=== PATIENT | male | born 1985 | race Caucasian/White ===

== ENCOUNTER 2017-06-23 08:56 | Emergency (ER) | payer OTHER, SELFPAY ==
[~2017-06-23] VITALS: Ht 177.8 cm; Wt 95.9 kg
[2017-06-23] MEDS ORDERED: LIDOCAINE 1%, 20ML ONE (11:57)
[2017-06-23] MEDS ORDERED: LIDOCAINE 1%, 20ML SQ ONE (12:00)
[2017-06-23 12:29] VITALS: BP 121/71
== END 2017-06-23 12:50 | disposition home or self-care (01) ==
LOC: ED 11:03
DX: K61.1 Rectal abscess (principal)
CPT/HCPCS: 46040

== ENCOUNTER 2017-06-26 12:55 | Emergency (ER) | payer OTHER ==
[~2017-06-26] VITALS: Ht 177.8 cm; Wt 95.3 kg
[2017-06-26 13:01] VITALS: BP 129/71
== END 2017-06-26 13:44 | disposition home or self-care (01) ==
LOC: ED 13:40
DX: L02.215 Cutaneous abscess of perineum (principal)
CPT/HCPCS: 99281

== ENCOUNTER 2019-04-05 10:20 | Emergency (ER) | payer MEDICAID, OTHER ==
[~2019-04-05] VITALS: Ht 175.3 cm; Wt 96.9 kg
[2019-04-05 11:14] LABS: BASOPHILS # (AUTO) 0.03 x10^3/uL (0-0.1); BASOPHILS % (AUTO) 0 % (0-1); EOSINOPHILS # (AUTO) 0.09 x10^3/uL (0-0.4); EOSINOPHILS % (AUTO) 1 % (1-7); LYMPHOCYTES # (AUTO) 2.09 x10^3/uL (1-3.4); LYMPHOCYTES % (AUTO) 30 % (22-44); MD NO; MEAN CORPUSCULAR HEMOGLOBIN 30.4 pg (27.5-34.5); MEAN CORPUSCULAR HGB CONC 33.2 g/dL (33.2-36.2); MEAN CORPUSCULAR VOLUME 91.6 fL (81-97); MEAN PLATELET VOLUME 8.8 fL (7.4-10.4); MONOCYTES # (AUTO) 0.47 x10^3/uL (0.2-0.8); MONOCYTES % (AUTO) 7 % (2-9); NEUTROPHILS # (AUTO) 4.24 x10^3/uL (1.8-6.8); NEUTROPHILS % (AUTO) 61 % (42-75); PLATELET COUNT 193 x10^3/uL (130-400); RED BLOOD COUNT 5.53 x10^6/uL (4.38-5.82); RED CELL DISTRIBUTION WIDTH 13.7 % (9.4-14.8)
[2019-04-05 11:27] LABS: ALBUMIN 4.5 g/dL (3.4-5.0); ANION GAP 6 mmol/L (5-15); CALCIUM 9.6 mg/dL (8.5-10.1); CHLORIDE 110 mmol/L (98-107)
[2019-04-05 11:30] LABS: ALANINE AMINOTRANSFERASE 58 U/L (12-78); ALKALINE PHOSPHATASE 82 U/L (45-117); BILIRUBIN,TOTAL 0.8 mg/dL (0.2-1.0); CREATININE 1.17 mg/dL (0.7-1.3); TOTAL PROTEIN 7.8 g/dL (6.4-8.2)
--- NOTE | 2019-04-05 11:59 | NUR ---
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
--- NOTE | 2019-04-05 12:05 | NUR ---
PT HAS CO OF BACK PAIN AND BLOATING AFTER WORKING OUT. FAMILY AT BEDSIDE. TOLD PT UA IS NEEDED.
[2019-04-05 12:33] LABS: MICROSCOPIC NOT IND
[2019-04-05 12:37] VITALS: BP 130/80
[2019-04-05 12:42] LABS: CULTURE INDICATED? NO
[2019-04-05] MEDS ORDERED: IBUPROFEN 600 MG TABLET PO ONE (13:00)
[2019-04-05] MEDS ORDERED: IBUPROFEN 600 MG TABLET ONE (13:17)
--- NOTE | 2019-04-05 13:46 | NUR ---
Patient/Caregiver given discharge instructions and they have confirmed that they understand the instructions. Patient ambulatory with steady gait.
== END 2019-04-05 14:07 | disposition home or self-care (01) ==
LOC: ED 13:23
DX: R10.11 Right upper quadrant pain (principal); R11.0 Nausea; R35.0 Frequency of micturition
CPT/HCPCS: 36415; 74022; 80053; 81003; 83690; 85025; 99284